=== PATIENT | male | born 1960 | race Caucasian/White ===

== ENCOUNTER 2017-03-09 21:04 | Emergency (ER) | payer OTHER ==
[2017-03-09] MEDS ORDERED: Aspirin 81 MG Tab.Chew PO ONE (21:24)
[2017-03-09] MEDS ORDERED: Nitroglycerin 0.4 MG Tab.SL SL ONE (21:25)
[2017-03-09] MEDS ORDERED: Heparin Sodium/D5W 25,000 UNITS/500 ML BAG IV SCH (21:45)
[2017-03-09 22:11] VITALS: BP 148/82
--- NOTE | 2017-03-10 02:00 | ER ---
DATE SEEN: 03/09/2017 CHIEF COMPLAINT: Chest pain. HISTORY OF PRESENT ILLNESS: This is a 56-year-old male complaining of chest pain that feels like indigestion started about 30 minutes one hour ago. He has mild shortness of breath. Radiates to the left side. REVIEW OF SYSTEMS: No headaches. Denies any nausea or vomiting. PAST MEDICAL HISTORY: Hypertension, hyperlipidemia, obesity. FAMILY HISTORY: Type 2 diabetes and hypertension in the father. PHYSICAL EXAMINATION: VITAL SIGNS: Blood pressure initially 200/111; repeat was 181/95, oxygenation 97% on room air. Pulse is 84 and temperature is 97.0. EARS, NOSE, and THROAT: Negative. CARDIOVASCULAR: Normal. RESPIRATIONS: Clear. ABDOMEN: Soft. EXTREMITIES: Some edema. LABORATORY DATA: Pending. IMAGING: X-ray chest negative. EKG showed some ST depressions from V1 all the way to V5 and V6. IMPRESSION: Chest pain. PLAN: I gave him nitroglycerin, some aspirin, and we will start heparin drip. I called [facility], who will transfer the patient to Cardiology. BNP, CBC, CMP were ordered routinely but I suppose this seems like non-ST elevation RI. TIME SEEN: 9:20 p.m. /[id number] SAMARA/PRINCE
--- NOTE | 2017-03-11 11:43 | CR ---
INDICATION: Chest pain. CHEST: A single AP portable upright view of the chest was obtained. The heart appeared normal in size and shape. The aorta is slightly tortuous with minimal calcification in the arch area. A definite active infiltrate or effusion was not identified. Evidence of exogenous obesity is noted. IMPRESSION: No acute process. MTDD
== END 2017-03-09 22:05 ==
LOC: FB.ED 21:04
DX: R07.9 Chest pain, unspecified (principal); I10 Essential (primary) hypertension; E78.5 Hyperlipidemia, unspecified; E66.9 Obesity, unspecified
CPT/HCPCS: 36415; 71010; 80053; 82550; 82553; 84484; 85025; 93005; 96365; 99285; A9270; J1644

== ENCOUNTER 2024-02-21 07:40 | Day surgery (SDC) | payer OTHER ==
[2024-02-21] MEDS ORDERED: Propofol 200 MG/20 ML SDV IV ONE (07:41)
[2024-02-21] MEDS ORDERED: Midazolam 1 MG/ML 2 ML SDV IV ONE (07:41)
[2024-02-21] MEDS ORDERED: Lidocaine 2% 100 MG/5 ML Syringe IVPUSH ONE (07:41)
[2024-02-21] MEDS ORDERED: Ketamine 500 mg/10 ML MDV IV ONE (07:41)
[2024-02-21] MEDS ORDERED: Phenylephrine 0.5% Nasal Spray 15 ML Bot NAS ONE (07:41)
[2024-02-21] MEDS ORDERED: Sodium Chloride 0.9% 10 ML Syringe FLUSH PRN (07:45)
[2024-02-21] MEDS: Lactated Ringers 1,000 ML IV SCH (08:55)
[2024-02-21] MEDS: Simethicone Drops 40 MG/0.6 ML 30 ML Bottle ONE (09:21)
[2024-02-21 10:51] VITALS: BP 121/85; PULSE 56
== END 2024-02-21 10:55 | disposition home or self-care (01) ==
LOC: FB.SDS 07:40
PROVIDERS: ATTEND Surgery
DX: Z12.11 Encounter for screening for malignant neoplasm of colon (principal); I25.10 Atherosclerotic heart disease of native coronary artery without angina pectoris; E78.5 Hyperlipidemia, unspecified; E66.01 Morbid (severe) obesity due to excess calories; I10 Essential (primary) hypertension; Z87.891 Personal history of nicotine dependence; Z68.42 Body mass index [BMI] 45.0-49.9, adult; Z95.5 Presence of coronary angioplasty implant and graft; Z79.899 Other long term (current) drug therapy; Z79.82 Long term (current) use of aspirin
CPT/HCPCS: 45378; A9270; J2250; J2704; J3490; J7120; 00812